=== PATIENT | male | born 1945 | race Caucasian/White ===

== ENCOUNTER 2020-12-03 16:37 | Emergency (ER) | payer MEDICARE ==
[~2020-12-03 16:37] MED LIST: AMARYL2 MG PO; ASPIR-TRIN325 MG PO; AUGMENTIN 875-1 EACH PO; BASAGLAR K100 UNIT/1 SC; BENTYL10 MG PO; METFORMIN HCL500 MG PO; NABUMETONE500 MG PO; NORCO 5-325 TA1 EACH PO; PLAVIX75 MG PO; PRAVACHOL20 MG PO; PRINIVIL20 MG PO; VICTOZA 2-0.6 MG/0.1 SC; ZOFRAN4 MG SL
[2020-12-03 17:59] LABS: BASOPHIL 0.6 % (0-2); EOSINOPHIL 2.8 % (0-7); HCT 40.1 % (42.0-52.0); HGB 13.7 g/dl (13.2-18.0); LYMPHOCYTE 14.8 % (15-48); MCH 29.7 pg (25.0-31.0); MCHC 34.2 g/dL (32.0-36.0); MCV 86.8 fL (78.0-100.0); MONOCYTE 9.1 % (0-12); MPV 11.5 fL (6.0-9.5); NEUTROPHIL 72.4 % (41-80); NRBC 0; PLT 170 K/uL (150-400); RBC 4.62 M/uL (4.70-6.00); RDW 12.7 % (11.5-14.0); WBC 6.7 K/uL (4.0-10.5)
[2020-12-03 18:03] LABS: INR 1.12 (0.9-1.2); PROTHROMBIN TIME 13.7 SECONDS (11.4-13.6); PTT 28.6 SECONDS (22.2-34.7)
[2020-12-03 18:09] LABS: ALBUMIN 3.6 g/dL (3.4-5.0); BILIRUBIN - TOTAL 0.6 mg/dL (0.2-1.0); BUN/CREAT RATIO (CALC) 19.8 RATIO; CREATININE 1.06 mg/dL (0.67-1.17); GLOBULIN (CALCULATION) 3.3 g/dL; POTASSIUM 4.6 mmol/L (3.5-5.1); TOTAL PROTEIN 6.9 g/dL (6.4-8.2)
== END 2020-12-03 19:48 | disposition home or self-care (01) ==
LOC: FER 16:37
PROVIDERS: Emergency Medicine
DX: G45.9 Transient cerebral ischemic attack, unspecified (principal); R29.700 NIHSS score 0; E11.9 Type 2 diabetes mellitus without complications; I10 Essential (primary) hypertension; Z86.73 Personal history of transient ischemic attack (TIA), and cerebral infarction without residual deficits
CPT/HCPCS: 36415; 70450; 71045; 80053; 85025; 85610; 85730; 93005